=== PATIENT | female | born 1990 | race African-American/Black ===

== ENCOUNTER 2016-11-12 22:17 | Emergency (ER) | payer OTHER ==
[~2016-11-12] VITALS: Ht 160 cm; Wt 95.7 kg
[~2016-11-12 22:17] MED LIST: NORFLEX100 MG PO; ULTRAM 50MG TAB50 MG PO
[2016-11-12] MEDS ORDERED: NORFLEX100 MG PO (23:38)
[2016-11-12] MEDS ORDERED: MOBIC7.5 MG PO (23:38)
[2016-11-12 23:53] VITALS: BP 129/85
== END 2016-11-12 23:54 | disposition home or self-care (01) ==
LOC: ER 22:17
DX: S16.1XXA Strain of muscle, fascia and tendon at neck level, initial encounter (principal); S39.012A Strain of muscle, fascia and tendon of lower back, initial encounter; V49.9XXA Car occupant (driver) (passenger) injured in unspecified traffic accident, initial encounter; Y93.I9 Activity, other involving external motion; Y92.410 Unspecified street and highway as the place of occurrence of the external cause; Y99.9 Unspecified external cause status